=== PATIENT | male | born 1975 | race African-American/Black ===

== ENCOUNTER 2017-04-13 17:24 | Emergency (ER) | payer OTHER ==
[~2017-04-13] VITALS: Ht 180.3 cm; Wt 130.0 kg
[2017-04-13 17:27] VITALS: BP 148/87; PULSE 139; RESP 14; TEMP 97.7; O2SAT 95
[2017-04-13 18:22] VITALS: BP 105/68; PULSE 124; RESP 18; TEMP 98.6; O2SAT 95
[2017-04-13] MEDS ORDERED: SODIUM CHLOR 0.9% 1000 ML INJ 1,000 ML IV ONE (18:40)
[2017-04-13] MEDS ORDERED: SODIUM CHLORIDE 0.9% FLUSH 10 ML FLUSH IVF PRN (18:45)
--- NOTE | 2017-04-13 18:46 | PD ---
HPI Chief Complaint: Seizure Time Seen by Provider: 18:42 Travel History International Travel<30 days: No Contact w/Intl Traveler<30days: No Traveled to known affect area: No History of Present Illness HPI 41-year-old male presents to the emergency department for evaluation after a seizure that occurred today. Apparently, according to the patient's sister, the patient was sleeping when he had seizure activity. He was postictal after. No tongue biting or incontinence. The patient has a history of seizures. He has not yet followed up with a neurologist or been started on any antiseizure medications. The patient was laying down the seizure curds, as there is no head injury. The patient states that he feels fine at this point. He denies any chest pain or shortness of breath. No abdominal pain. No nausea, vomiting , diarrhea. Patient reports no other chronic medical problems and takes no prescribed medications. He denies any alcohol, tobacco, illicit drug use. PFSH Past Medical History Cancer: No Cardiovascular Problems: No Diminished Hearing: No Endocrine: No Gastrointestinal Disorders: No Genitourinary: No Immune Disorder: No Musculoskeletal: Yes (RIB FRACTURE LEFT SIDE FEW MONTHS AGO) Neurologic: No Psychiatric: No Respiratory: Yes (SEASONAL ALLERGIES) Immunizations Current: No Seizures: Yes Tetanus Vaccination: > 5 Years Influenza Vaccination: No Past Surgical History Surgical History: No Previous Surgery Other Surgery: No Social History Alcohol Use: No Tobacco Use: No Substance Use: Yes (MARIJUANA) Allergies-Medications (Allergen,Severity, Reaction): Coded Allergies: No Known Allergies (Verified , 04/13/17) Reported Meds & Prescriptions Reported Meds & Active Scripts Active No Active Prescriptions or Reported Medications Review of Systems Except as stated in HPI: all other systems reviewed are Neg Physical Exam Narrative GENERAL: Well-nourished, well-developed male patient, ambulatory. Afebrile. SKIN: Focused skin assessment warm/dry. HEAD: Normocephalic. Atraumatic. EYES: No scleral icterus. No injection or drainage. NECK: Supple, trachea midline. No JVD or lymphadenopathy. CARDIOVASCULAR: Regular rhythm without murmurs, gallops, or rubs. Patient is tachycardic, heart rate in the 120s. RESPIRATORY: Breath sounds equal bilaterally. No accessory muscle use. Lungs sounds are clear to auscultation GASTROINTESTINAL: Abdomen soft, non-tender, nondistended. MUSCULOSKELETAL: No cyanosis, or edema. BACK: Nontender without obvious deformity. No CVA tenderness. Data Data Last Documented VS Vital Signs Date Time Temp Pulse Resp B/P Pulse Ox O2 Delivery O2 Flow Rate FiO2 04/13/17 19:55 99 18 151/83 95 Room Air 04/13/17 18:22 98.6 Orders Electrocardiogram (04/13/17 ) Complete Blood Count With Diff (04/13/17 18:40) Blood Glucose (04/13/17 18:40) Ecg Monitoring (04/13/17 18:40) Iv Access Insert/Monitor (04/13/17 18:40) Oximetry (04/13/17 18:40) Comprehensive Metabolic Panel (04/13/17 18:40) Sodium Chlor 0.9% 1000 Ml Inj (Ns 1000 M (04/13/17 18:40) Sodium Chloride 0.9% Flush (Ns Flush) (04/13/17 18:45) Magnesium (Mg) (04/13/17 18:40) Labs Laboratory Tests Test 04/13/17 18:25 White Blood Count 9.4 TH/MM3 Red Blood Count 5.28 MIL/MM3 Hemoglobin 15.6 GM/DL Hematocrit 47.3 % Mean Corpuscular Volume 89.6 FL Mean Corpuscular Hemoglobin 29.6 PG Mean Corpuscular Hemoglobin 33.1 % Concent Red Cell Distribution Width 14.5 % Platelet Count 239 TH/MM3 Mean Platelet Volume 8.5 FL Neutrophils (%) (Auto) 57.7 % Lymphocytes (%) (Auto) 33.8 % Monocytes (%) (Auto) 7.3 % Eosinophils (%) (Auto) 1.0 % Basophils (%) (Auto) 0.2 % Neutrophils # (Auto) 5.4 TH/MM3 Lymphocytes # (Auto) 3.2 TH/MM3 Monocytes # (Auto) 0.7 TH/MM3 Eosinophils # (Auto) 0.1 TH/MM3 Basophils # (Auto) 0.0 TH/MM3 CBC Comment DIFF FINAL Differential Comment Sodium Level 135 MEQ/L Potassium Level 3.7 MEQ/L Chloride Level 102 MEQ/L Carbon Dioxide Level 24.2 MEQ/L Anion Gap 9 MEQ/L Blood Urea Nitrogen 14 MG/DL Creatinine 1.16 MG/DL Estimat Glomerular Filtration 84 ML/MIN Rate Random Glucose 121 MG/DL Calcium Level 9.4 MG/DL Magnesium Level 2.4 MG/DL Total Bilirubin 0.3 MG/DL Aspartate Amino Transf 23 U/L (AST/SGOT) Alanine Aminotransferase 40 U/L (ALT/SGPT) Alkaline Phosphatase 104 U/L Total Protein 8.0 GM/DL Albumin 4.1 GM/DL [facility] Medical Decision Making Medical Screen Exam Complete: Yes Emergency Medical Condition: Yes Medical Record Reviewed: Yes Differential Diagnosis Recurrent seizure versus electrolyte abnormality versus dehydration Narrative Course 41-year-old male presents to the emergency department for evaluation after a seizure just prior to arrival. Patient does have known history of seizures. He is not currently on any antiseizure medications. Patient has no complaints at this time. He is slightly tachycardic. EKG shows sinus rhythm, heart rate 81, no acute ST changes. CBC, CMP, magnesium are ordered and pending. Patient is given normal saline 1 L IV bolus CBC is unremarkable. CMP shows no acute abnormality. Magnesium is 2.4. Upon reexamination, patient states he feels fine and would like to go home. I stressed the importance of following with a neurologist. I will give him the name and number of our neurologist on-call today. Patient verbalizes agreement and understanding. He is to return for any acute worsening of symptoms. The patient was discharged in stable condition with instructions, including return instructions and follow up instructions. Diagnosis Primary Impression: Seizure Referrals: Wallace Rockwell MD call for appointment Primary Care Physician call for appointment Patient Instructions: General Instructions, Recurrent Seizures in Adults (ED) Additional Instructions: Follow up with neurologist. Return to the emergency department for any acute worsening of symptoms. Med/Other Pt SpecificInfo: No Change to Meds Scripts No Active Prescriptions or Reported Meds Disposition: 01 DISCHARGE HOME Condition: Stable Mareilos Zheng WILBERT Apr 13, 2017 18:46
[2017-04-13 19:30] LABS: AUTOMATED NEUTROPHIL # 5.4 TH/MM3 (1.8-7.7); BASOPHIL % 0.2 % (0.0-2.0); EOSINOPHIL # 0.1 TH/MM3 (0-0.4); HEMATOCRIT 47.3 % (39.0-51.0); HEMO FLAGS DIFF FINAL; LYMPH % 33.8 % (9.0-44.0); LYMPHOCYTE # 3.2 TH/MM3 (1.0-4.8); MEAN CELL VOLUME 89.6 FL (80.0-100.0); MEAN CORPUSCULAR HEMOGLOBIN 29.6 PG (27.0-34.0); MEAN CORPUSCULAR HGB CONC 33.1 % (32.0-36.0); MONO % 7.3 % (0.0-8.0); NEUT % 57.7 % (16.0-70.0); PLATELET COUNT 239 TH/MM3 (150-450); RED BLOOD COUNT 5.28 MIL/MM3 (4.50-5.90); RED CELL DISTRIBUTION WIDTH 14.5 % (11.6-17.2); WHITE BLOOD COUNT 9.4 TH/MM3 (4.0-11.0)
[2017-04-13 19:48] LABS: ALT (GPT) 40 U/L (12-78)
[2017-04-13 19:51] LABS: ALKALINE PHOSPHATASE 104 U/L (45-117); ANION GAP 9 MEQ/L (5-15); AST (GOT) 23 U/L (15-37); BICARBONATE 24.2 MEQ/L (21.0-32.0); BLOOD UREA NITROGEN 14 MG/DL (7-18); CHLORIDE 102 MEQ/L (98-107); GLOMERULAR FILTRATION RATE 84 ML/MIN (>89); MAGNESIUM 2.4 MG/DL (1.5-2.5); POTASSIUM 3.7 MEQ/L (3.5-5.1); SODIUM (NA) 135 MEQ/L (136-145); TOTAL BILIRUBIN ADULT 0.3 MG/DL (0.2-1.0)
[2017-04-13 19:55] VITALS: BP 151/83; PULSE 99; RESP 18; O2SAT 95
--- NOTE | 2017-04-15 08:38 | EKG ---
Date Performed: 04/13/2017 Time Performed: 18:43:27 PTAGE: 41 years EKG: SINUS TACHYCARDIA Poor R wave progression LEFT ANTERIOR FASCICULAR BLOCK NONSPECIFIC ST BRIDGER VATION Prolonged QTc interval ABNORMAL ECG PREVIOUS TRACING : 05/31/2015 00.02 DOCTOR: Zenon Fonseca Interpretating Date/Time 04/15/2017 08:38:21
== END 2017-04-13 20:25 | disposition home or self-care (01) ==
LOC: NEPC 17:24
DX: R56.9 Unspecified convulsions (principal)
CPT/HCPCS: 80053; 83735; 85025; 93005; 96360; 99284; J7030